=== PATIENT | male | born 1990 | race African-American/Black ===

== ENCOUNTER 2018-04-28 05:08 | Emergency (ER) | payer MEDICAID ==
[~2018-04-28] VITALS: Ht 180.3 cm; Wt 81.0 kg
[2018-04-28 05:11] VITALS: BP 130/82
== END 2018-04-28 09:43 | disposition left against medical advice (07) ==
LOC: ER 05:08
DX: Z53.21 Procedure and treatment not carried out due to patient leaving prior to being seen by health care provider (principal)